=== PATIENT | female | born 1995 | race Caucasian/White ===

== ENCOUNTER → 2018-07-14 15:13 | Outpatient (CLI) | payer OTHER, SELFPAY | PROVIDERS: Family Provider Family Medicine; PCP Family Medicine; Visit Provider Registered Nurse | DX: Z53.9 Procedure and treatment not carried out, unspecified reason (principal) ==

== ENCOUNTER 2019-07-23 18:42 | Emergency (ER) | payer OTHER, SELFPAY ==
[2019-07-23 19:06] VITALS: BP 104/69; PULSE 82; RESP 16; TEMP 36.7; O2SAT 97; BMI 17.4
--- NOTE | 2019-07-23 19:09 | DI.RAD.S_ITS ---
PROCEDURE: XR ANKLE LT MIN 3V INDICATIONS: rolled L ankle TECHNIQUE: 3 views of the ankle were acquired. COMPARISON: None. FINDINGS: Bones: No fractures or dislocations. Ankle mortise is normally aligned. No suspicious bony lesions. Soft tissues: No tibiotalar joint effusion. Achilles tendon appears normal. IMPRESSION: No acute fracture. No osseous lesion. If clinical suspicion and/or symptoms persist, further assessment with repeat plainfilms, or advanced imaging (e.g., CT, MRI, or bone scan) may be helpful for further assessment. Dictated by: Soledad Mcintosh M.D. on 07/23/2019 at 19:21 Approved by: Soledad Mcintosh M.D. on 07/23/2019 at 19:21
--- NOTE | 2019-07-23 19:41 | ED.LOWEXIN ---
HPI - Extremity Injury (Lower) <SHERIF Briones - Last Filed: 07/23/19 21:39> General Chief Complaint: Extremity Injury, Lower Stated Complaint: fall, left ankle pain Time Seen by Provider: 07/23/19 18:57 Source: patient Mode of arrival: Wheelchair Limitations: no limitations History of Present Illness HPI Narrative: This is a pleasant 24-year-old female, nonsmoker, who presents with friend with chief complain of left lateral ankle/foot pain. She states rolled and inverted left foot after she stepped wrong on side walk and grass hedge and felt. Patient reports is able to move her toes, has intact sensation but difficulty with bearing weight due to pain. Patient denies previous injury to same foot or ankles. Patient denies any other injuries from this. Related Data Home Medications Medication Instructions Recorded Confirmed albuterol sulfate 90 mcg/actuation 2 puff INHALATION Q4-6H PRN 07/14/18 10/14/18 aerosol inhaler fluticasone propionate 44 2 inhalation INHALATION BID 06/12/19 mcg/actuation HFA aerosol inhaler Allergies Allergy/AdvReac Type Severity Reaction Status Date / Time No Known Drug Allergies Allergy Verified 10/14/18 14:25 Review of Systems <SHERIF Briones - Last Filed: 07/23/19 21:39> Review of Systems ROS Unobtainable: All systems reviewed & are unremarkable except as noted in HPI and below PFSH <SHERIF Briones - Last Filed: 07/23/19 21:39> Medical History Asthma (Resolved) Surgical History History of third molar tooth extraction (Resolved 2009) Family History (Updated 10/14/18 @ 10:55 by Guerline Freitas) Brother No problems noted. Father No problems noted. Mother No problems noted. Sister No problems noted. Grandmother Bipolar disorder Social History Smoking Status: Never smoker alcohol intake: current (occasionally) substance use type: does not use Family History Brother No problems noted. Father No problems noted. Mother No problems noted. Sister No problems noted. Grandmother Bipolar disorder Social History Smoking Status: Never smoker alcohol intake: current (occasionally) substance use type: does not use Exam <SHERIF Briones - Last Filed: 07/23/19 21:39> Narrative Exam Narrative: General appearance: well developed, well nourished, in no acute distress. Head: normocephalic, atraumatic, no scalp lesions, non-tender. Eye: pupil equal, round. EOMI. Nose: nares patent. Oral: mucosa moist. Neck/Thyroid: neck supple, full range of motion, no visible masses. Skin: no suspicious rashes, lesions over visible areas. Warm and dry. Heart: no clubbing, no cyanosis, no edema. Lungs: Breathing even and unlabored. No stridor. No accessory muscles used. Chest: normal shape and expansion. Abdomen: non-obese, non-distended. Neurologic: alert and oriented. Cognitive exam, DOLL WIG MAKER and PNS grossly intact on informal exam. Psych: good eye contact, normal affect. Initial Vital Signs Initial Vital Signs: Vital Signs Temperature 98.1 F 07/23/19 19:06 Pulse Rate 82 07/23/19 19:06 Respiratory Rate 16 07/23/19 19:06 Blood Pressure 104/69 07/23/19 19:06 Pulse Oximetry 97 07/23/19 19:06 Extrem Right upper extremity: normal to inspection and full ROM Left upper extremity: normal to inspection and full ROM Right lower extremity: normal to inspection and full ROM Left lower extremity: ankle Details: normal to inspection, tenderness Location: anterolaterally, no edema and abnormal ROM Details: pain with active ROM and pain with passive ROM and foot Details: normal capillary refill, normal to inspection, tenderness Location: of the lateral foot and of the mid foot, toes with normal ROM, no edema, vascular exam Details: dorsalis pedis pulse present, normal capillary refill and other, tendon exam (but painful) Details: active flexion normal and active extension normal and motor-sensory exam Details: light-touch normal; no abrasions, no lacerations, no ecchymosis and no crepitus <Thong Hayden DO - Last Filed: 07/23/19 23:50> Initial Vital Signs Initial Vital Signs: Vital Signs Temperature 98.1 F 07/23/19 19:06 Pulse Rate 82 07/23/19 19:06 Respiratory Rate 16 07/23/19 19:06 Blood Pressure 104/69 07/23/19 19:06 Pulse Oximetry 97 07/23/19 19:06 Procedures <SHERIF Briones - Last Filed: 07/23/19 21:39> Orthopedic Splinting/Casting Injury #1: Side: left Lower Extremity Injury Location: ankle Lower Extremity Immobilizer: Derek wrap Other Orthopedic Equipment: crutches Post splinting neuro exam: intact Post splinting vascular exam: intact Placed by: Nursing Scores <SHERIF Briones - Last Filed: 07/23/19 21:39> GCS [place] coma scale eye opening: Spontaneous [place] coma scale verbal response: Orientated [place] coma scale motor response: Obey commands [place] coma scale total score: 15 Course <SHERIF Briones - Last Filed: 07/23/19 21:39> Orders Ordered: ED Orders 07/23/19 19:09 XR ankle LT min 3V Stat Vital Signs Vital signs: Vital Signs - 8 hr 07/23/19 19:06 Temperature 98.1 F Pulse Rate 82 Respiratory Rate 16 Blood Pressure 104/69 Pulse Oximetry 97 <Thong Hayden DO - Last Filed: 07/23/19 23:50> Orders Ordered: ED Orders 07/23/19 19:09 XR ankle LT min 3V Stat Vital Signs Vital signs: Vital Signs - 8 hr 07/23/19 19:06 Temperature 98.1 F Pulse Rate 82 Respiratory Rate 16 Blood Pressure 104/69 Pulse Oximetry 97 MDM - Extremity Injury (Lower) <SHERIF Briones - Last Filed: 07/23/19 21:39> Differential Diagnosis Differential diagnosis: Likely ankle sprain and strain, ankle fracture and other (Foot sprain, foot fracture) Medical Records Attestation: I reviewed the patient's medical records. Imaging Data XR-Ankle LT: Radiologist's impression: [address] [address] XRay Report Signed Patient: Gabriela Brumfieldlyfilemon Garcia [facility]#: [id number] : 1995Acct:[id number] Age/Sex: 24 / FDate of Service: 07/23/19 Loc: ED Accession Number: [id number] Procedure: XR ankle LT min 3V Ordering Provider: Thong Hayden D.O. PROCEDURE: XR ANKLE LT MIN 3V INDICATIONS: rolled L ankle TECHNIQUE: 3 views of the ankle were acquired. COMPARISON: None. FINDINGS: Bones: No fractures or dislocations. Ankle mortise is normally aligned. No suspicious bony lesions. Soft tissues: No tibiotalar joint effusion. Achilles tendon appears normal. IMPRESSION: No acute fracture. No osseous lesion. If clinical suspicion and/or symptoms persist, further assessment with repeat plainfilms, or advanced imaging (e.g., CT, MRI, or bone scan) may be helpful for further assessment. Dictated by: Soledad Mcintosh M.D. on 07/23/2019 at 19:21 Approved by: Soledad Mcintosh M.D. on 07/23/2019 at 19:21 [facility] Narrative Medical decision making narrative: This is a 24-year-old female inverted her L foot this afternoon on a sidewalk and grass edge. Neurovascular exam is intact in left foot. Patient is able to move her toes without difficulty. Patient reports difficulty bearing weight due to pain. Left ankle x-ray shows no acute findings. Derek wrap was applied to left foot and provided a crutch for ambulation assistance. Patient advised RICE therapy and to take OTC Tylenol/Motrin as needed for pain and inflammation. Return precautions were discussed with the patient and advised to follow up with her primary care physician next week. The patient agrees with treatment plan and no further questions were expressed at this time. Work note has been provided. Discharge Plan Departure Patient Disposition: Home Clinical Impression: Ankle sprain Qualifiers: Encounter type: initial encounter Involved ligament of ankle: unspecified ligament Laterality: left Qualified Code(s): S93.402A - Sprain of unspecified ligament of left ankle, initial encounter Discharge Date/Time: 07/23/19 20:09 Instructions: DI for Ankle Sprain Activity Restrictions/Additional Instructions: You have been diagnosed with [ankle sprain. According to x-ray test today, as no acute findings such as fracture, dislocation. ]. What to do: *Take your medications as directed. You use [id number] Tylenol and or Motrin as needed for discomfort. Tylenol is for upto 4000 mg /24 hr period and Motrin 400mg-800 mg 3-4 times a day with food. Please use ?RICE? therapy such as Rest, Ice, Compression/Spliint/Acewra, and Elevation above the chest level. Ice the area for next 24-48 hrs after the initial injury. Please try to avoid getting swelling to the affected site since this may cause increasing pain. *Follow up with your primary care provider in 2-3 days, call for an appointment. Let them know you were seen in the ED and that we asked you to be seen in follow up. *Return to ED if you have any new, worsening, or concerning symptoms, such as [Please monitor for increasing pain, swelling, tingling/numbness, unable to move affected/below the injury site, cool limbs]. Prescriptions: No Action Flovent HFA 44 mcg/actuation HFA aerosol inhaler 2 inhalation INHALATION BID RF: 0 albuterol sulfate [ProAir HFA] 90 mcg/actuation HFA aerosol inhaler 2 puff INHALATION Q4-6H PRNRF: 0 Referrals: Elly Coffey MD [Primary Care Provider] - Stand Alone Forms: Work Release Note
== END 2019-07-23 20:09 | disposition home or self-care (01) ==
PROVIDERS: Emergency Provider Nurse Practitioner Family; Family Provider Family Medicine; PCP Family Medicine
DX: S93.402A Sprain of unspecified ligament of left ankle, initial encounter (principal); W01.0XXA Fall on same level from slipping, tripping and stumbling without subsequent striking against object, initial encounter
CPT/HCPCS: 73610; 99282; 99283

== ENCOUNTER 2020-06-26 09:13 | Outpatient (RCR) | payer OTHER, SELFPAY ==
--- NOTE | 2020-06-27 10:58 | ST.OPIE ---
Visit Care Team Role Provider Type Giuseppe Haley DO Primary Care Provider Physician Specialty: Family Practice Address: [address] [place] [address], [id number] Email: Elly Coffey MD Family Provider Physician Specialty: Family Practice Address: [address] [place] [address], [place], [address] Email: [email or web address] Matthew Conner MD Attending Provider Non-Staff Referring Provider Specialty: Allergy & Immunology Address: [address] [place] [address], [id number] Email: Speech-Language Pathology Initial Evaluation COMMUNITY MANAGER Voice Resonance Evaluation Start: 06/26/20 17:16 Freq: Status: Active Protocol: Document 06/26/20 17:16 LL (Rec: 06/26/20 17:45 LL [id number]) Voice and Resonance Assessment Session Time Visit Start Time 09:30 Visit Stop Time 10:30 Total Visit Minutes 60 Visit Information Visit Number 1 Plan of Care Dates 06/26/20-09/25/20 Insurance Information [place] Next Note Type Next Note Type Treatment Note Referral Referring Physician Dr. Matthew Conner Reason for Referral Vocal cord dysfunction (VCD) / Paradoxical vocal cord motion (PVCM) Setting Setting Outpatient Care Patient History General Information Per H&P: Caridad is a 25-year- old female with complaints of throat clearing, intermittent episodes of throat tightening, and sporadic changes in vocal quality specifically in the morning. Caridad has a history of asthma as well as throat hypersensitivity symptoms suggestive of vocal cord dysfunction (VCD), and laryngoesophageal reflux disease (LPRD). Caridad reported the following symptoms to Dr. Conner: throat acutely tightens up ( especially with class presentations), globus pharyngeus (feeling like there ?s a FB at the base of her throat), hears inspiratory noises on occasions, feeling like she is ?breathing thru a straw?, and difficulty speaking when throat tightens up. Caridad received a rhinolaryngoscopy on 01/04/2019 to determine presence of VCD. 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 Hectors vocal cords appeared normal, with notation of some mild focal areas of thickening or early nodule formation at the juncture of the posterior one third with the anterior two thirds of the true vocal cords. No vocal cord dysfunction was observed. It was noted that Hectors symptoms worsened when she was furloughed due to COVID-19, but symptoms have improved since she returned to work. She was referred by Dr. Conner to receive a full voice evaluation due to ongoing episodes of acute-onset throat tightness and concern about vocal cord dysfunction / paradoxical vocal cord motion the underlying cause of her symptoms. At the beginning of the session, COMMUNITY MANAGER obtained additional case history information from Caridad. Caridad reported that she was diagnosed with silent reflux and was prescribed omeprazole for a short period of time, but decided to stop taking the medication because she could not tell a difference in her symptoms. She also reported that she was diagnosed with post nasal drip but does not currently take any medication to manage symptoms. Caridad has a dx of asthma and uses a steroid inhaler to manage symptoms. Caridad self- reported signs and symptoms similar to anxiety /stress and attributes school and work to these symptoms. Hearing Hearing Level Normal Vision Vision Status Impaired Comments Wear glasses - vision WNL when wearing glasses [place] Lang[place] Language(s) Spoken in the Home Malay Educational Status Education Level College - currently obtaining her Master's Degree in School Counseling Occupational Status Occupation Status Nanny / College student Previous Therapy Previous Speech-Language Therapy No History of Previous Therapy No previous speech therapy. Caridad reported that she had a speech therapy evaluation scheduled last year after rhinolaryngoscopy, however canceled the appointment. Oral Motor Assessment Source: [place] [employer] ([employer]). Oral-Motor Eval Completed Yes Oral-Motor Assessment Normal oral cavity size and symmetrical structures WFL of strength, coordination, and ROM. Caridad has complete natural dentition in adequate condition. No weakness or deviations observed. Subjective Subjective Caridad arrived on time unaccompanied. She provided a detailed case history and was extremely pleasant to work with. - Laryngeal Performance S/Z Ratio S/Z Ratio 10.7 / 6.75 = 1.585 Functional for Speech Yes Reduced Laryngeal Function Relative to Yes Respiration Voice Handicap Index VHI Comments VHI-10 administered. Scores: 12.5% - mild impairment Maximum Phonation Time MPT Norms: Women (15-25) Men (25-35) Loudness (50-60 dB); Speaking Rate: Oral Reading of Sentences (190 Words Per Minute); Oral Reading of Paragraphs (160-170 WPM); Speaking Rate in Conversation (150-250 WPM) Maximum Phonation Time 11.47 seconds Maximum Phonation Time Reduced Muscle Tension Assessment Muscle Tension Assessment Jaw,Neck,Shoulders Tenderness with Palpation/Massage Yes,Bilateral Tongue Base Tension Tongue Base Tension w/ Voicing Yes: moderate Tongue Base Tension at Rest Yes: moderate Breath Support Breath Support At Rest Clavicular Breath Support Sustained Phonation Clavicular Breath Support Conversation Clavicular Postural Alignment Stance Balanced Shoulders Both High Resonance Other Observations Inadequate Breath Support, Throat Clearing Therapeutic Techniques Therapy Tactics Breath Support Other Tactics Diapgragmatic breathing and relaxation techniques to reduce laryngeal tension. Findings Findings Mild-Moderate Impairment Observations Findings were as follows: S/Z ratio: 1.585 (A ratio of 1 .4 or above may indicate a degree of vocal fold dysfunction). Maximum Phonation Time: 11.47 seconds (Average MPT for females range from 15 seconds ? 25 seconds) Mild-moderately reduced. Diadochokinetic Rate (DDK): Mild-moderately reduced CAPE-V: Initiated but incomplete. VHI-10: . Mild impairment. Caridad self-reported difficulty being understood by others in a noisy room and running out of air when speaking. Breath support: Clavicular breathing. Raised shoulders when speaking. Laryngeal and shoulder tension observed. Reduced breath support. *Ongoing assessment recommended to further assess Hectors voice, resonance, and respiratory function. Prognosis Rehabilitation Potential Excellent - Recommendations Treatment Recommended Yes Treatment Frequency/Duration 1 x per week for 1-2 months Therapy Recommendations Reviewed results with Caridda and recommended that she receive speech therapy to address above listed impairments to improve her vocal and respiratory function . Provided Caridad with a diaphragmatic breathing handout and vocal hygiene tips handout to begin utilizing at home. COMMUNITY MANAGER demonstrated correct use of diaphragmatic breathing to increase Hector s understanding and compliance with home exercise program. Informed Caridad that ongoing assessments are recommended to further guide plan of care. She verbalized understanding and agreement with plan. Short Term Goals 1. Caridad will participate in an ongoing assessment of her voice and respiratory function to measure progress and further guide plan of care. 2. Caridad will demonstrate an understanding of voice production physiology and controlled voice utilization by describing/listing the phonation process and alternatives or modifications of current use in different environmental contexts with 90 % accuracy within 4 weeks. 3. Caridad will eliminate vocal misuse to improve health of vocal folds by reducing or eliminating laryngeal tension and trauma to vocal tissues within 4 weeks as evidenced by patient report and COMMUNITY MANAGER observations with 100% accuracy. 4. Caridad will increase her maximum phonation time (MPT) from 11.47 seconds to 15-25 seconds to improve respiratory and vocal function. 5. Caridad will establish volitional control of respiration evidenced by utilization of diaphragmatic breathing during structured tasks within 4 weeks with 100% accuracy independently. Advertising Sales Executive Goals 1. Caridad will implement generalization of goals with 80% accuracy independently to encourage the use of new vocal skills in varied speaking contexts. * Goals may be modified pending additional assessment results. Patient/Caregiver Education Patient/Family Education Described results of evaluation,Patient Understanding,Patient Needs More Info Vocally Abusive Behavior Behavior Rating Caffeine Use Occasionally Coughing/Sneezing Loudly Frequent throat clearing Environmental Irritant Exposure Frequently Use of Inhalants Inhaler for asthma
--- NOTE | 2020-11-26 13:23 | ST.OPDS ---
Patient seen for evaluation on 06-26-20 and has not scheduled follow-up appointment since then. Discharge due to lapse in treatment.
== END 2020-12-02 15:10 ==
LOC: SP 09:13
PROVIDERS: Family Provider Family Medicine; PCP Family Medicine; Referring Provider Internal Medicine; Visit Provider Internal Medicine
DX: J38.3 Other diseases of vocal cords (principal)
CPT/HCPCS: 92524

== ENCOUNTER → 2023-10-09 11:56 | Outpatient (CLI) | payer OTHER, SELFPAY | PROVIDERS: Family Provider Family Medicine; PCP Family Medicine; Referring Provider Family Medicine; Visit Provider Family Medicine | DX: N97.9 Female infertility, unspecified (principal); Z78.9 Other specified health status | CPT/HCPCS: 36415; 84144 ==

== ENCOUNTER → 2024-01-04 08:03 | Outpatient (CLI) | payer OTHER, SELFPAY ==
[2024-01-04 09:48] LABS: HCG Quantitative /Beta subunit < 2.4 mIU/mL
== END ==
PROVIDERS: Family Provider Family Medicine; PCP Family Medicine; Referring Provider Family Medicine; Visit Provider Family Medicine
DX: N92.6 Irregular menstruation, unspecified (principal)
CPT/HCPCS: 36415; 84702

== ENCOUNTER → 2024-02-05 12:02 | Outpatient (CLI) | payer OTHER, SELFPAY ==
[2024-02-05 14:09] LABS: TSH w/ Reflex to FT4 0.62 uIU/mL (0.47-4.68)
[2024-02-05 15:29] LABS: Estradiol, Total 37.7 pg/mL
[2024-02-11 10:17] LABS: Anti Mullerian Hormone 7.83 ng/mL (.)
== END ==
LOC: LAB 12:03
PROVIDERS: Family Provider Family Medicine; PCP Family Medicine; Referring Provider Family Medicine; Visit Provider Family Medicine
DX: N97.9 Female infertility, unspecified (principal)
CPT/HCPCS: 36415; 82397; 82670; 83001; 84443

== ENCOUNTER → 2024-03-16 15:11 | Outpatient (CLI) | payer OTHER, SELFPAY ==
--- NOTE | 2024-03-16 15:30 | DI.US.S_ITS ---
PROCEDURE: US PELVIC COMPLETE INDICATIONS: Evaluate uterine anatomy TECHNIQUE: Real-time scanning was performed of the pelvic organs, with image documentation. Additional endovaginal scanning was necessary due to incomplete visualization of the adnexal and endometrial structures by transabdominal scanning. COMPARISON: None. FINDINGS: Uterus: Uterus is anteverted and normal in size at 7.1 x 2.8 x 3.5 cm. The myometrium is homogeneous. The endometrium measures 5 mm combined thickness. Ovaries: The right ovary measures 3.8 x 2.2 x 2.9 cm, with a calculated ovarian volume of 12.6 cc. The left ovary measures 2.5 x 1.8 x 1.6 cm, with a calculated ovarian volume of 3.7 cc. Simple cystic focus is present within the right ovary measuring 1.7 cm. Other: No pathologic free abdominal or pelvic fluid. IMPRESSION: Simple right ovarian cyst. Uterine anatomy appears within normal limits. We strive to produce accurate, complete, and clear reports of imaging services. To assist us in improving patient care, this report was composed using standard report templates and voice recognition software. Therefore, it may contain abnormal punctuation, insertions and/or omissions. Occasional wrong-word or sound-alike substitutions may occur. Though we review the report and make efforts to correct it, we do recommend that the report be read carefully in proper context to recognize any text inaccuracies. Dictated by: Kitty Naranjo M.D. on 03/16/2024 at 17:27 Approved by: Kitty Naranjo M.D. on 03/16/2024 at 17:28
== END ==
LOC: US 15:12
PROVIDERS: Family Provider Family Medicine; PCP Family Medicine; Referring Provider Student in an Organized Health Care Education/Training Program; Visit Provider Student in an Organized Health Care Education/Training Program
DX: N97.9 Female infertility, unspecified (principal); N83.291 Other ovarian cyst, right side
CPT/HCPCS: 76856

== ENCOUNTER → 2024-09-25 08:02 | Outpatient (CLI) | payer OTHER, SELFPAY ==
[2024-09-25 09:22] LABS: Hemoglobin A1C% w Est Avg Glu 5.1 % (4.0-6.0)
[2024-09-25 09:27] LABS: Add Manual Diff / Slide Review NO; Basophils Absolute Auto 0 /uL (0-100); Basophils Percent Auto 0.8 % (0-2); Eosinophils Absolute Auto 100 /uL (0-450); Eosinophils Percent Auto 2.7 % (2-4); HEMOLYSIS < 15 (0-50); Hemoglobin 14.5 g/dL (12.0-16.0); Iron 150 ug/dL (37-170); Lymphocytes Absolute Auto 1900 /uL (1100-4500); Lymphocytes Percent Auto 44.4 % (25-40); Mean Corpuscular HGB Conc 33.8 % (30-36); Mean Corpuscular Hemoglobin 31.7 PG (26-34); Mean Corpuscular Volume 93.7 fL (80-100); Monocytes Absolute Auto 200 /uL (0-900); Monocytes Percent Auto 5.4 % (3-14); Neutrophils Absolute Auto 2000 /uL (1500-7000); Neutrophils Percent Auto 46.7 % (50-75); Platelet Count 300 X10^3/uL (150-400); Red Blood Cell Count 4.59 X10^6/uL (4.0-5.2); Red Cell Distribution Width 12.9 % (11.6-14.8); White Blood Cell Count 4.3 X10^3/uL (4.5-11.0)
[2024-09-25 09:29] LABS: Alanine Aminotransferase 17 IU/L (<35); Albumin 4.6 g/dL (3.5-5.0); Albumin Globulin Ratio 1.6 (1.0-2.8); Alkaline Phosphatase 52 U/L (38-126); Aspartate Aminotransferase 22 IU/L (14-36); BUN Creatinine Ratio 12.2 (6-22); Bilirubin Total 0.7 mg/dL (0.2-1.3); Blood Urea Nitrogen 10 mg/dL (7-17); Calcium 9.9 mg/dL (8.4-10.2); Carbon Dioxide 28 mmol/L (22-32); Chloride 105 mmol/L (98-107); Cholesterol 194 mg/dL (140-199); Estimated Glomerular Filt Rate > 60 mL/min (>60); Globulin 2.9 g/dL (1.7-4.1); Glucose 103 mg/dL (70-100); HDL Cholesterol 93 mg/dL (40-60); HEMOLYSIS < 15 (0-50); LDL Cholesterol Calculated 90 mg/dL (<100); Potassium 4.2 mmol/L (3.4-5.1); Sodium 138 mmol/L (137-145); Total Protein 7.5 g/dL (6.3-8.2); Triglycerides 56 mg/dL (35-150)
[2024-09-25 09:34] LABS: High Sensitivity CRP - Cardiac 2.9 mg/L (1.0-3.0)
[2024-09-25 09:39] LABS: Percent Iron Saturation 71 % (15-50); Total Iron Binding Capacity 212 ug/dL (265-497); Transferrin 196 mg/dL (206-381)
[2024-09-25 09:45] LABS: Vitamin D 25 Hydroxy (D3) 23.6 ng/mL (30.0-100.0)
[2024-09-25 09:46] LABS: Free T4, Direct Thyroxine 1.06 ng/dL (0.78-2.19)
[2024-09-25 09:59] LABS: Thyroid Stimulating Hormone 0.626 uIU/mL (0.47-4.68)
[2024-09-25 10:05] LABS: Ferritin 51 ng/mL (6-137)
[2024-09-25 10:18] LABS: Vitamin B12 542 pg/mL (239-931)
[2024-09-26 07:41] LABS: Homocysteine 7.7 umol/L (0.0-14.5)
[2024-09-26 08:12] LABS: Insulin Level Total 3.9 uIU/mL (2.6-24.9)
[2024-09-26 15:36] LABS: Anti Thyroglobulin Antibody <1.0 IU/mL (0.0-0.9); Thyroid Peroxidase Antibodies <9 IU/mL (0-34)
[2024-09-27 17:09] LABS: Thyroid Stimulating Immunoglob < 0.10 IU/L (0.00-0.55)
[2024-09-29 12:39] LABS: Hemoglobin Free 0.7 mg/dL (0.0-4.9)
== END ==
PROVIDERS: Family Provider Family Medicine; PCP Family Medicine; Referring Provider Naturopath; Visit Provider Naturopath
DX: N94.3 Premenstrual tension syndrome (principal); N94.89 Other specified conditions associated with female genital organs and menstrual cycle; R55 Syncope and collapse; E63.9 Nutritional deficiency, unspecified; N97.9 Female infertility, unspecified; R68.89 Other general symptoms and signs
CPT/HCPCS: 36415; 80053; 80061; 81291; 82166; 82306; 82607; 82627; 82670; 82728; 83001; 83002; 83036; 83051; 83090; 83498; 83525; 83540; 83550; 84146; 84270; 84402; 84403; 84439; 84443; 84445; 84481; 85025; 86140; 86376; 86800

== ENCOUNTER → 2024-11-03 13:33 | Outpatient (CLI) | payer OTHER, SELFPAY ==
--- NOTE | 2024-11-03 13:34 | DI.MRI.S_ITS ---
PROCEDURE: MR PELVIS WO/W CON INDICATIONS: PERSISTENT SEVERE DYSMENORRHEA TECHNIQUE: Coronal HASTE, sagittal breath-hold T2 FSE; axial T1 FSE with and without fat saturation through the pelvis. Optional long- and short-axis uterine nonbreath-hold T2 FSE through the uterus. Sagittal or axial dynamic VIBE during administration of contrast. Post-contrast axial or coronal VIBE/2-D FLASH with fat saturation from the iliac crests to the symphysis. Optional diffusion weighted imaging and ADC may be performed. COMPARISON: None. FINDINGS: Image quality: Excellent. Uterus: Uterus is normal in size. Endometrium is normal in thickness. Junctional zone is normal in thickness at 12 mm or less. Adnexa: Both ovaries measure greater than 10 mL, without suspicious cystic or solid lesions. Greater than 12 follicles per ovary. Urinary system: Bladder wall is normal in thickness. Distal ureters are non distended. Urethra appears normal in morphology. Nodes and vessels: No pelvic or inguinal adenopathy by size criteria. Iliac vessels are normal in size. Bowel and peritoneum: No pathologic free pelvic fluid. Inferior colon and small bowel loops are normal in caliber. Soft tissues: No inguinal hernias. No findings of pelvic floor incompetence in the absence of provocation. Bones: Marrow demonstrates normal overall signal. IMPRESSION: No evidence of endometriosis. Greater than 12 follicles per ovary, which can be seen in the clinical setting of PCOS. Dictated by: Reji Chin M.D. on 11/05/2024 at 8:40 Approved by: Reji Chin M.D. on 11/05/2024 at 8:42
== END ==
PROVIDERS: Family Provider Family Medicine; PCP Family Medicine; Referring Provider Naturopath; Visit Provider Naturopath
DX: N94.6 Dysmenorrhea, unspecified (principal); N80.9 Endometriosis, unspecified
CPT/HCPCS: 72197; A9579

== ENCOUNTER → 2024-11-22 16:22 | Outpatient (CLI) | payer OTHER, SELFPAY ==
[2024-11-22 19:07] LABS: HCG Quantitative /Beta subunit 704.08 mIU/mL
== END ==
PROVIDERS: Family Provider Family Medicine; PCP Family Medicine; Referring Provider Family Medicine; Visit Provider Family Medicine
DX: Z34.90 Encounter for supervision of normal pregnancy, unspecified, unspecified trimester (principal); N97.9 Female infertility, unspecified
CPT/HCPCS: 36415; 84702

== ENCOUNTER → 2024-11-24 16:08 | Outpatient (CLI) | payer OTHER, SELFPAY ==
[2024-11-24 18:46] LABS: HCG Quantitative /Beta subunit 1816.3 mIU/mL
== END ==
PROVIDERS: Family Provider Family Medicine; PCP Family Medicine; Referring Provider Family Medicine; Visit Provider Family Medicine
DX: Z34.90 Encounter for supervision of normal pregnancy, unspecified, unspecified trimester (principal); N97.9 Female infertility, unspecified
CPT/HCPCS: 36415; 84702

== ENCOUNTER → 2024-12-18 12:29 | Outpatient (CLI) | payer OTHER, SELFPAY ==
[2024-12-18 13:18] LABS: Add Manual Diff / Slide Review NO; Basophils Absolute Auto 0 /uL (0-100); Basophils Percent Auto 0.5 % (0-2); Eosinophils Absolute Auto 100 /uL (0-450); Eosinophils Percent Auto 1.2 % (2-4); Hematocrit 36.2 % (36-46); Hemoglobin 12.5 g/dL (12.0-16.0); Lymphocytes Absolute Auto 1600 /uL (1100-4500); Lymphocytes Percent Auto 23.4 % (25-40); Mean Corpuscular HGB Conc 34.5 % (30-36); Mean Corpuscular Hemoglobin 31.8 PG (26-34); Mean Corpuscular Volume 92.2 fL (80-100); Monocytes Absolute Auto 300 /uL (0-900); Monocytes Percent Auto 4.8 % (3-14); Neutrophils Absolute Auto 4800 /uL (1500-7000); Neutrophils Percent Auto 70.1 % (50-75); Platelet Count 256 X10^3/uL (150-400); Red Blood Cell Count 3.93 X10^6/uL (4.0-5.2); Red Cell Distribution Width 13.1 % (11.6-14.8); White Blood Cell Count 6.9 X10^3/uL (4.5-11.0)
[2024-12-18 15:51] LABS: Hepatitis B Surface Antigen NEGATIVE s/c (NEGATIVE); Rubella Antibody IgG 44.8 IU/mL (>15)
[2024-12-18 16:08] LABS: HIV 1 & 2 Ab/Ag 4th Gen Combo NEGATIVE (NEGATIVE); Hep C Virus Ab w/Reflex Quant NEGATIVE s/c (NEGATIVE)
[2024-12-18 17:27] LABS: Hemoglobin A1C% w Est Avg Glu 4.8 % (4.0-6.0)
[2024-12-20 04:08] LABS: RPR Screen Non Reactive (Non Reactive)
== END ==
LOC: LAB 12:30
PROVIDERS: PCP Family Medicine; Referring Provider Family Medicine; Visit Provider Family Medicine
DX: Z34.00 Encounter for supervision of normal first pregnancy, unspecified trimester (principal); E28.2 Polycystic ovarian syndrome
CPT/HCPCS: 36415; 80055; 83036; 86787; 86803; 86850; 86900; 86901; 87389

== ENCOUNTER → 2025-01-04 16:07 | Outpatient (CLI) | payer OTHER, SELFPAY ==
[2025-01-04 16:40] LABS: Appearance Urine UA CLEAR; Bilirubin Urine UA NEGATIVE (NEGATIVE); Color Urine UA YELLOW; Glucose Urine UA NEGATIVE (Negative); Ketones Urine UA NEGATIVE (NEGATIVE); Leukocyte Esterase Urine UA NEGATIVE (NEGATIVE); Nitrite Urine UA NEGATIVE (Negative); Occult Blood Urine UA NEGATIVE (Negative); Protein Urine UA NEGATIVE (Negative); Specific Gravity Urine UA 1.025 (1.000-1.035); Urobilinogen Urine UA 0.2 E.U./dL (0.2)
== END ==
LOC: LAB 16:08
PROVIDERS: PCP Family Medicine; Referring Provider Family Medicine; Visit Provider Family Medicine
DX: Z34.00 Encounter for supervision of normal first pregnancy, unspecified trimester (principal)
CPT/HCPCS: 81003

== ENCOUNTER → 2025-02-27 07:50 | Outpatient (CLI) | payer OTHER, SELFPAY ==
--- NOTE | 2025-02-27 07:51 | DI.US.S_ITS ---
PROCEDURE: US OB >= 14 WEEKS FETUS INDICATIONS: growth OUTSIDE/PRIOR DATING DATA: Last menstrual period (LMP): 10/20/2024. LMP-based estimated date of delivery (IVONNE): 07/27/2025. First dating scan (date and location): 12/18/2024. Estimated date of delivery (IVONNE) from first dating scan: 07/29/2025. The calculations are made using the clinical IVONNE of 07/27/2025. TECHNIQUE: Real-time scanning was performed of the fetus, with image documentation and biometric measurements. Endovaginal scanning: Not performed COMPARISON: None. FINDINGS: General: A single living intrauterine gestation is present. Presentation: Breech. Placenta: Placental position is anterior , without previa. Amniotic fluid index: 16.9 cm, normal range is 5-24 cm. Single deepest vertical pocket is 5.4 cm. heart rate: 147 beats per minute. Maternal cervical canal: 4.3 cm long. Normal lower limit is 2.5 cm. biometrics: Biparietal diameter: 4.4 cm, 19 weeks 2 days Head circumference: 15.5 cm, 18 weeks 3 days Abdominal circumference: 13.3 cm, 18 weeks 6 days Femur length: 2.6 cm, 17 weeks 6 days Clinically estimated gestational age: 18 weeks 4 days Composite gestational age from present scan: 18 weeks 4 days Estimated weight and percentile: 238 g, 35th percentile Anatomic survey: Neuro: Possible bilateral choroid plexus cysts. Ventricles are non-dilated at less than 10 mm. Cisterna magna is normal at 3-11 mm. Cerebellum is normal in size and morphology. Nuchal skin fold: Normal at less than 6 mm between 14-21 weeks gestational age. Face: Nose and lips, facial profile are normal. Spine: No evidence for spina bifida. Heart: 4-chambered heart is present, with normal ventricular outflow tracts. Diaphragm: Diaphragm is intact. Stomach: Left-sided stomach is present. Kidneys: No hydronephrosis. Normal is less than 5 mm in 2nd trimester, less than 7 mm in 3rd trimester. Cord: 3-vessel cord has orthotopic insertion. Bladder: Normal in size. Extremities: All 4 extremities identified. IMPRESSION: 1. Single live intrauterine consistent with 18 weeks and 4 days. 2. Possible bilateral choroid plexus cysts, recommend follow-up ultrasound. 3. Otherwise, normal anatomic survey. We strive to produce accurate, complete, and clear reports of imaging services. To assist us in improving patient care, this report was composed using standard report templates and voice recognition software. Therefore, it may contain abnormal punctuation, insertions and/or omissions. Occasional wrong-word or sound-alike substitutions may occur. Though we review the report and make efforts to correct it, we do recommend that the report be read carefully in proper context to recognize any text inaccuracies. Dictated by: Xavier Liu M.D. on 02/27/2025 at 10:28 Approved by: Xavier Liu M.D. on 02/27/2025 at 10:31
== END ==
LOC: US 07:50
PROVIDERS: PCP Family Medicine; Referring Provider Family Medicine; Visit Provider Family Medicine
DX: Z34.02 Encounter for supervision of normal first pregnancy, second trimester (principal); Z3A.18 18 weeks gestation of pregnancy
CPT/HCPCS: 76811

== ENCOUNTER → 2025-03-20 14:18 | Outpatient (CLI) | payer OTHER, SELFPAY ==
--- NOTE | 2025-03-20 14:19 | DI.US.S_ITS ---
PROCEDURE: US OB FOLLOW UP INDICATIONS: bilateral choroid plexus cysts OUTSIDE/PRIOR DATING DATA: The calculations are made using the IVONNE of 07/27/2025. TECHNIQUE: Real-time scanning was performed of the fetus, with image documentation. Endovaginal scanning: Not performed COMPARISON: [facility], , OB >= 14 WEEKS FETUS, 02/27/2025, 8:02. FINDINGS: A single living intrauterine gestation is present. Presentation: Vertex. Placenta: Placental position is anterior, without previa. Amniotic fluid index: 18.4 cm, normal range is 5-24 cm. Single deepest vertical pocket is 0.3 cm. heart rate: 155 beats per minute. Maternal cervical canal: 4.4 cm long. Normal lower limit is 2.5 cm. Clinically estimated gestational age: 21 weeks, 4 days The right choroid plexus appears within normal limits. Probable left choroid plexus complex cysts, medial posteriorly measuring 1.2 x 0.6 x 0.4 cm and lateral/mid measuring 1.3 x 0.5 x 0.3 cm. IMPRESSION: 1. Single live intrauterine consistent with 21 weeks and 4 days. 2. Probable left choroid plexus cysts as described above. As clinically indicated, follow-up ultrasound or genetic screening can be obtained. Dictated by: Xavier Liu M.D. on 03/21/2025 at 10:42 Approved by: Xavier Liu M.D. on 03/21/2025 at 10:48
== END ==
PROVIDERS: PCP Family Medicine; Referring Provider Family Medicine; Visit Provider Family Medicine
DX: G93.0 Cerebral cysts (principal); Z3A.21 21 weeks gestation of pregnancy
CPT/HCPCS: 76816

== ENCOUNTER → 2025-05-02 09:11 | Outpatient (CLI) | payer OTHER, SELFPAY ==
[2025-05-02 10:09] LABS: Add Manual Diff / Slide Review NO; Hematocrit 36.0 % (36-46); Hemoglobin 12.6 g/dL (12.0-16.0); Lymphocytes Absolute Auto 1300 /uL (1100-4500); Mean Corpuscular HGB Conc 35.0 % (30-36); Mean Corpuscular Hemoglobin 33.1 PG (26-34); Mean Corpuscular Volume 94.7 fL (80-100); Platelet Count 256 X10^3/uL (150-400)
[2025-05-02 12:02] LABS: GTT (PREG) 1 Hour PP 50gm Dose 85 mg/dL (76-139)
== END ==
PROVIDERS: PCP Family Medicine; Referring Provider Family Medicine; Visit Provider Family Medicine
DX: Z34.00 Encounter for supervision of normal first pregnancy, unspecified trimester (principal)
CPT/HCPCS: 36415; 82950; 85025; 86850

== ENCOUNTER → 2025-07-02 15:35 | Outpatient (CLI) | payer OTHER, SELFPAY ==
[2025-07-03 14:28] LABS: Strep Grp B PCR NEG for Grp B Strep
== END ==
PROVIDERS: PCP Family Medicine; Visit Provider Family Medicine
DX: Z34.00 Encounter for supervision of normal first pregnancy, unspecified trimester (principal)
CPT/HCPCS: 87653

== ENCOUNTER → 2025-07-03 15:37 | Outpatient (CLI) | payer OTHER, SELFPAY ==
--- NOTE | 2025-07-03 15:37 | DI.US.S_ITS ---
PROCEDURE: US OB FOLLOW UP INDICATIONS: GROWTH OUTSIDE/PRIOR DATING DATA: Last menstrual period (LMP): 10/20/2024. LMP-based estimated date of delivery (IVONNE): 07/27/2025. First dating scan (date and location): 12/18/2024. Estimated date of delivery (IVONNE) from first dating scan: 07/29/2025. The calculations are made using the clinical IVONNE of 07/27/2025. TECHNIQUE: Real-time scanning was performed of the fetus, with image documentation. Endovaginal scanning: Not performed COMPARISON: [facility], OB >= 14 WEEKS FETUS, 02/27/2025, 8:02. [facility], OB FOLLOW UP, 03/20/2025, 14:33. FINDINGS: A single living intrauterine gestation is present. Presentation: Vertex. Placenta: Placental position is anterior, without previa. Amniotic fluid index: 12.9 cm, normal range is 5-24 cm. Single deepest vertical pocket is 5.2 cm. heart rate: 136 beats per minute. Maternal cervical canal: Not well seen. Biometric measurements: BPD: 9.5 cm, 38 weeks 4 days. 96 percentile. HC: 33.0 cm, 37 weeks 4 days. 46 percentile. AC: 32.4 cm, 36 weeks 2 days. 56 percentile. FL: 6.7 cm, 34 weeks 2 days. 4 percentile. Clinically estimated gestational age: 36 weeks 4 days Estimated gestational age from initial scan: 36 weeks 5 days. Estimated weight: 2867 g, 43rd percentile. IMPRESSION: 1. Andrew living intrauterine at 36 weeks 5 days based on today's ultrasound. Fetus is in the 43rd percentile for weight overall. However, the BPD is in the 96th percentile and the femur length is in the 4th percentile. 2. Normal amniotic fluid. Placenta is felt to be within normal limits. Dictated by: Wade Pearce M.D. on 07/03/2025 at 17:15 Approved by: Wade Pearce M.D. on 07/03/2025 at 17:35
== END ==
LOC: US 15:37
PROVIDERS: PCP Family Medicine; Referring Provider Family Medicine; Visit Provider Family Medicine
DX: Z34.03 Encounter for supervision of normal first pregnancy, third trimester (principal); Z3A.36 36 weeks gestation of pregnancy
CPT/HCPCS: 76816

== ENCOUNTER 2025-07-04 13:08 | Outpatient (CLI) | payer OTHER, SELFPAY ==
--- NOTE | 2025-07-04 13:20 | DI.US.S_ITS ---
PROCEDURE: US OB LIMITED INDICATIONS: REPEAT MEASUREMENTS + HUMERUS OUTSIDE/PRIOR DATING DATA: Last menstrual period (LMP): 10/20/2024. LMP-based estimated date of delivery (IVONNE): 07/27/2025. First dating scan (date and location): 12/18/2024. Estimated date of delivery (IVONNE) from first dating scan: 07/29/2025. The calculations are made using the working IVONNE of 07/27/2025. TECHNIQUE: Real-time scanning was performed of the fetus, with image documentation and biometric measurements. Endovaginal scanning: Not performed COMPARISON: [facility], , OB FOLLOW UP, 07/03/2025, 15:56. FINDINGS: General: A single living intrauterine gestation is present. Presentation: Vertex. Placenta: Placental position is anterior , without previa. Amniotic fluid index: Not calculated today. It was normal yesterday, measuring 12.9 cm. heart rate: 162 beats per minute. Maternal cervical canal: Not well seen at late stage of . biometrics: Biparietal diameter: 9.2 cm, 37 weeks 3 days Head circumference: 39.2 cm, 37 weeks 2 days Abdominal circumference: 31.3 cm, 35 weeks 1 day Femur length: 6.8 cm, 34 weeks 5 days, 7 percentile Humerus length: 6.2 cm, 35 weeks 5 days, 64 percentile Clinically estimated gestational age: 36 weeks 5 days Composite gestational age from present scan: 36 weeks 0 days Estimated weight and percentile: 2698 g, 24th percentile Umbilical artery S/D: 2.6, 2.9, 2.3 Other: There is no marginal insertion of the cord on the placenta. IMPRESSION: 1. Living late 3rd trimester intrauterine with no sonographic evidence of complications. 2. Short femur. Normal sized humerus. 3. Normal umbilical artery Dopplers. We strive to produce accurate, complete, and clear reports of imaging services. To assist us in improving patient care, this report was composed using standard report templates and voice recognition software. Therefore, it may contain abnormal punctuation, insertions and/or omissions. Occasional wrong-word or sound-alike substitutions may occur. Though we review the report and make efforts to correct it, we do recommend that the report be read carefully in proper context to recognize any text inaccuracies. Dictated by: Gianni Soni M.D. on 07/04/2025 at 14:54 Approved by: Gianni Soni M.D. on 07/04/2025 at 15:00
--- NOTE | 2025-07-04 13:47 | P.TNLD_ITS ---
Visit Information Visit Information Date of evaluation: 07/04/25 Primary OB Provider: Elly Coffey Comments/Additional reasons for admission: 30yo at 36w5d here for NST for shortened femur and enlarged BPD seen on growth u/s yesterday. Pt is feeling her baby move regularly. [facility] Medical History PCOS (polycystic ovarian syndrome) Heterozygous for MTHFR gene mutation GERD with esophagitis Female infertility Plantar wart of right foot Surgical History History of third molar tooth extraction (2009) Family History Brother No problems noted. Father Asthma GERD (gastroesophageal reflux disease) Melanoma Mother No problems noted. Sister No problems noted. 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 current occupational exposures/hazards: No special marsha needs: No travel history: over 6 months ago seatbelt use: always helmet use: Yes water heater temp set < 120 deg: Yes working smoke detector in home: Yes fire extinguisher in home: Yes carbon monox detector in home: Yes firearms in home: Yes firearms unloaded and locked: Yes do you feel safe at home: Yes second hand exposure: No alcohol intake: never substance use type: does not use during the past year weight has: remained stable well-balanced diet: daily or most days daily servings fruits/ve or more times/day caffeine: Yes (occasional black tea) Type(s) of exercise: walking frequency: 3-4 times per week Evaluation Evaluation Baseline heart rate: 140 Variability: Moderate (6-25) monitor accelerations: Present Monitor Decelerations: Absent Category of Tracing: Reactive Diagnosis, Plan/Disposition Final Diagnosis (1) Short femur of fetus on ultrasound: Status: Acute Plan/Disposition Plan: 30yo at 36w5d here for NST for shortened femur and enlarged BPD seen on growth u/s yesterday. NST reactive. Repeat growth scan today showing appropriate length of humerus. Femur at the 7th percentile, BPD appropriate percentile. Normal u/a dopplers. Pt with negative cfDNA earlier in . No need for additional testing at this time. OB Disposition: home
== END 2025-07-04 14:43 | disposition home or self-care (01) ==
LOC: LABOR 13:33 → OB 07-06 10:39
PROVIDERS: PCP Family Medicine; Referring Provider Family Medicine; Visit Provider Family Medicine
DX: O35.HXX0 Maternal care for other (suspected) fetal abnormality and damage, fetal lower extremities anomalies, not applicable or unspecified (principal); O35.8XX0 Maternal care for other (suspected) fetal abnormality and damage, not applicable or unspecified; Z3A.36 36 weeks gestation of pregnancy
CPT/HCPCS: 59025; 76815; 76820; G0378; G0379

== ENCOUNTER 2025-07-20 18:07 | Outpatient (CLI) | payer OTHER, SELFPAY | END 2025-07-20 18:59 | disposition home or self-care (01) | LOC: OB 07-23 10:59 | PROVIDERS: PCP Family Medicine; Referring Provider Family Medicine; Visit Provider Family Medicine | DX: O36.8130 Decreased fetal movements, third trimester, not applicable or unspecified (principal); Z3A.39 39 weeks gestation of pregnancy | CPT/HCPCS: 59025; G0378; G0379 ==

== ENCOUNTER 2025-07-25 02:35 | Observation (INO) | payer OTHER, SELFPAY | END 2025-07-25 05:20 | disposition home or self-care (01) | PROVIDERS: Admitting Provider Obstetrics & Gynecology; PCP Family Medicine; Referring Provider Obstetrics & Gynecology; Visit Provider Obstetrics & Gynecology | DX: O47.1 False labor at or after 37 completed weeks of gestation (principal); Z3A.39 39 weeks gestation of pregnancy | CPT/HCPCS: 59025; G0378; G0379 ==

== ENCOUNTER 2025-07-25 11:22 | Inpatient (IN) | payer OTHER, SELFPAY ==
[2025-07-25 12:53] LABS: Add Manual Diff / Slide Review NO; Hematocrit 40.4 % (36-46); Hemoglobin 13.7 g/dL (12.0-16.0); Lymphocytes Absolute Auto 1300 /uL (1100-4500); Mean Corpuscular HGB Conc 33.9 % (30-36); Mean Corpuscular Hemoglobin 31.7 PG (26-34); Mean Corpuscular Volume 93.4 fL (80-100); Platelet Count 257 X10^3/uL (150-400)
[2025-07-25 13:41] VITALS: BP 120/67
--- NOTE | 2025-07-25 13:52 | PM.OBHP.IH.1 ---
OB HPI Date/Time Date of admission: 07/25/25 Date Patient Seen: 07/25/25 History of Present Condition Chief complaint: nst IVONNE Calculator Estimated Delivery Date Method Current WG Current Estimate 07/27/25 LMP (Certain) 39w 5d Other Estimates 07/29/25 Ultrasound #1 39w 3d Estimated Gestational Age (weeks): 39w5d Narrative: Pt is a 30yo at 39w5d who presented with painful contractions. Pt reports contractions increasing in intensity and frequency around 10am. No vaginal bleeding or LOF. She is feeling her baby move regularly. The pts was complicated by asthma, well controlled on Flovent. Also noted to have small femurs on f/u u/s at the 7th percentile without any additional growth anomalies. care: good care, initiated at week # (8) and pounds weight gain (24) Dating criteria OB: LMP confirmed by 1st trimester US Ultrasounds: normal 1st trimester US and normal mid trimester US Abnormal ultrasound findings: 7th percentile femur length Obstetrical complications: none Medical complications OB: none Preadmission Labs Last OB Lab Results: Blood Type A Positive Today, 12:10 Antibody Screen Negative Today, 12:10 Hct, (36-46) 40.4 % Today, 12:10 Hgb, (12.0-16.0) 13.7 g/dL Today, 12:10 Hep Bs Antigen, (NEGATIVE) Negative s/c 12/18/24, 13:00 Hepatitis C Antibody, (NEGATIVE) Negative s/c 12/18/24, 13:00 Rubella Antibody, (>15) 44.8 IU/mL 12/18/24, 13:00 VZV IgG Antibody, (Non Reactive) Reactive 12/18/24, 13:00 Glucose 1 Hr 50 gm, (76-139) 85 mg/dL 05/02/25, 10:53 Hemoglobin A1c, (4.0-6.0) 4.8 % 12/18/24, 13:00 Group B Strep (PCR) Neg for grp b strep 07/02/25, 15:28 -: Urine: negative Genetic Screens: Cell-free DNA: Normal External Labs -: Urine: negative Evaluation Evaluation Baseline heart rate: 130 Variability: Moderate (6-25) monitor accelerations: Present Monitor Decelerations: Absent Contraction Frequency (minutes): 3 Status: Category l Dilation (cm): 4 Effacement (%): 80 station: -2 [facility] Medical History PCOS (polycystic ovarian syndrome) Heterozygous for MTHFR gene mutation GERD with esophagitis Female infertility Plantar wart of right foot Surgical History History of third molar tooth extraction (2009) Family History Brother No problems noted. Father Asthma GERD (gastroesophageal reflux disease) Melanoma Mother No problems noted. Sister No problems noted. 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 current occupational exposures/hazards: No special marsha needs: No travel history: over 6 months ago seatbelt use: always helmet use: Yes water heater temp set < 120 deg: Yes working smoke detector in home: Yes fire extinguisher in home: Yes carbon monox detector in home: Yes firearms in home: Yes firearms unloaded and locked: Yes do you feel safe at home: Yes Smoking Status: Never smoker second hand exposure: No alcohol intake: never substance use type: does not use during the past year weight has: remained stable well-balanced diet: daily or most days daily servings fruits/ve or more times/day caffeine: Yes (occasional black tea) Type(s) of exercise: walking frequency: 3-4 times per week Meds Home Medications and Allergies Home Medications ?Medication ?Instructions ?Recorded ?Confirmed ?Type albuterol sulfate 90 mcg/actuation 2 puff inhalation Q4-6H PRN 07/14/18 07/25/25 History aerosol inhaler (ProAir HFA) shortness of breath or wheezing albuterol sulfate 2.5 mg/3 mL 2.5 mg inhalation Q4-6H PRN 05/17/20 07/25/25 History (0.083 %) solution for nebulization shortness of breath or wheezing fluticasone propionate 44 2 inh inhalation BID #10.6 grams 07/13/24 07/25/25 Rx mcg/actuation HFA aerosol inhaler vitamin-ferrous sulfate 1 tab PO DAILY 11/28/24 07/25/25 History 27 mg iron-folic acid 0.8 mg tablet ondansetron 4 mg disintegrating 4 mg PO Q8H PRN nausea and 03/12/25 07/25/25 Rx tablet vomiting #30 tabs Allergies Allergy/AdvReac Type Severity Reaction Status Date / Time No Known Drug Allergies Allergy Verified 07/09/25 15:14 OB Exam Resp Effort & Inspection: normal respiratory effort Auscultation: clear to auscultation bilaterally Cardio Rate: regular rate Rhythm: regular rhythm Heart Sounds: S1 normal, S2 normal and no murmurs GI Inspection: non-distended Palpation: Yes soft and No tender Presentation: vertex Objective Labs 07/25/25 12:10 Labs: Laboratory Results - last 24 hr 07/25/25 12:10 WBC 11.9 H RBC 4.32 Hgb 13.7 Hct 40.4 MCV 93.4 MCH 31.7 MCHC 33.9 RDW 13.1 Plt Count 257 Neut % (Auto) 85.6 H Lymph % (Auto) 10.7 L Walton % (Auto) 3.1 Eos % (Auto) 0.1 L Baso % (Auto) 0.5 Neut # (Auto) 59209 H Lymph # (Auto) 1300 Walton # (Auto) 400 Eos # (Auto) 0 Baso # (Auto) 100 Blood Type A Positive Antibody Screen Negative Assessment and Plan Assessment and Plan Assessment and Plan narrative: Pt is a 30yo at 39w5d who presented in active labor. GBS negative, Rh positive. Noted to have shortened femurs on u/s, 7th percentile. Pt also with well controlled asthma. - Expectant management, anticipate - FHT reassuring - GBS negative, no prophylaxis indicated - Epidural for pain control when desired - No Hemabate after delivery due to asthma Time-Based Coding :: [TOTAL MINUTES] spent with patient and on the chart (including review of chart, obtaining history, exam, reviewing outside data, placing orders, documenting exam and treatment plan, and counseling patient) on [DATE].
[2025-07-25] MEDS: LACTATED RINGERS 1,000 ML 100 ML IV ×2 (14:55→16:54)
[2025-07-25] MEDS: FENT 2MCG/ML BUPIV 0.125% EPI 200 MCG/100 ML PLAST..BAG 8 MCG EPIDURAL (16:55)
--- NOTE | 2025-07-25 16:55 | P.PCN_ITS ---
[facility] Pre-procedure Procedure: Continuous Lumbar Epidural for L&D Attending OB provider: Elly Coffey PMH/ROS narrative: term labor. PMH: PCOS (polycystic ovarian syndrome), Heterozygous for MTHFR gene mutation, GERD with esophagitis, Asthma. No obstetric complications. ASA Class: II Labs: Hct 40.4 % (36-46) 07/25/25 12:10 Plt Count 257 X10^3/uL (150-400) 07/25/25 12:10 Medications: Current Medications Generic Name Dose Route Start Last Admin Trade Name Freq PRN Reason Stop Dose Admin Albuterol 2.5 mg 07/25/25 13:47 Albuterol 2.5 Mg/3 Ml Neb (Adult) INH Q4H PRN Shortness Of Breath Or Wheezing Budesonide 0.5 mg 07/25/25 20:00 Budesonide 0.5 Mg/2 Ml Neb INH RTBID LINH Calcium Carbonate 1,000 mg 07/25/25 12:02 Calcium Carbonate 500 Mg Tab PO Q2HR PRN Dyspepsia Carboprost Tromethamine 250 mcg 07/25/25 12:02 Carboprost 250 Mcg/Ml Ampul IM Q90M PRN Bleeding Diphenhydramine HCl 25 mg 07/25/25 16:49 Diphenhydramine 50 Mg/Ml Vial IV Q10M PRN Pruritis Fentanyl 50 mcg 07/25/25 12:02 Fentanyl 100 Mcg/2 Ml Inj IV Q1H PRN Pain, Moderate (4-6) Oxytocin/Lactated Ringer's 30 unit in 500 mls @ 200 mls/hr 07/25/25 12:02 Oxytocin Premix IV CONT PRN Bleeding Protocol Tranexamic Acid 1,000 mg/ 100 mls @ 600 mls/hr 07/25/25 12:02 Sodium Chloride IV NOW PRN Bleeding Lactated Ringer's 1,000 mls @ 100 mls/hr 07/25/25 12:15 07/25/25 16:54 Lactated Ringers IV 07/25/25 22:14 100 mls/hr CONT LINH Administration FENT 2MCG/ML BUPIV 0.125% EPI 200 mcg in 100 mls @ 8 mls/hr 07/25/25 17:00 07/25/25 16:55 Fentanyl/Bupiv/Ns 2mcg/Ml - 0.125% EPIDURAL 8 mls/hr CONT LINH Administration Lidocaine HCl 20 ml 07/25/25 12:02 Lidocaine 1% 20 Ml INJ INTRA-OP PRN Post Delivery Methylergonovine Maleate 0.2 mg 07/25/25 12:02 Methylergonovine 0.2 Mg Tablet PO Q6HR PRN Heavy Bleeding Methylergonovine Maleate 0.2 mg 07/25/25 12:02 Methylergonovine 0.2 Mg/Ml Vial IM NOW PRN Bleeding Mineral Oil 30 ml 07/25/25 12:02 Mineral Oil 30 Ml Udc TOP PRN PRN Version Misoprostol 800 mcg 07/25/25 12:02 Misoprostol 200 Mcg Tablet AK NOW PRN Bleeding Misoprostol 400 mcg 07/25/25 12:02 Misoprostol 200 Mcg Tablet SL NOW PRN Bleeding Nalbuphine HCl 2.5 mg 07/25/25 16:49 Nalbuphine 20 Mg/Ml Ampul IV Q10M PRN Pruritis Naloxone HCl 0.2 mg 07/25/25 12:02 Naloxone 0.4 Mg/Ml Vial IV Q2MIN PRN Opiate Reversal Ondansetron HCl 4 mg 07/25/25 12:02 Ondansetron 4 Mg/2 Ml Inj IV Q4HR PRN Nausea And Vomiting Oxytocin 10 unit 07/25/25 12:02 Oxytocin 10 Unit/Ml Vial IM NOW PRN Bleeding Allergies: Allergies Allergy/AdvReac Type Severity Reaction Status Date / Time No Known Drug Allergies Allergy Verified 07/09/25 15:14 Procedure Insertion date: 07/25/25 Insertion time: 16:16 Prep/Local: betadine x3 and 1% lidocaine Interspace: L34 Patient position: sitting Needle: 18 gauge Wukong.comtead (CSE: 27g Pencan through Hustead, clear CSF, 1mL 0.25% Bupiv MPF) Loss of resistance with: saline COOPER at (cm): 4 Catheter placed at SKIN (cm): 10 Catheter in SPACE (cm): 6 Insertion: No CSF, No Blood, No Paresthesia with insertion, No Paresthesia with injection and No Test dose reaction Initial Medications TEST DOSE time: 16:17 TEST DOSE: 1.5% lidocaine with epinephrine 1:200k (mL): 3 BOLUS DOSE time: 16:27 BOLUS DOSE (mL): 4 BOLUS DOSE med: other (infusate) Infusion INFUSION: 0.125% bupivacaine and with fentanyl 2 mcg/mL Initial rate (mL/hr): 8 Subsequent interventions: PCEA@8+4 Post-procedure Anesthesia date START: 07/25/25 Anesthesia time START: 16:08 Anesthesia date END: 07/26/25 Anesthesia time END: 04:11 Post-procedure Anesthesia Assessment: Yes CV function: HR/BP stable, Yes Resp function: RR/sat/airway adequate, Yes Post-op hydration adequate, Yes Pain control adequate, Yes Nausea & vomiting absent, Yes Temperature > 36 C, Yes Men maty status appropriate and No Anesthesia complications
[2025-07-25] MEDS: ONDANSETRON 4 MG/2 ML INJ IV ×2 (17:14→21:54)
--- NOTE | 2025-07-25 22:28 | PM.OBPNLAB ---
Date/Time Date Patient Seen: 07/25/25 Time Patient Seen: 22:10 Pain Control Pain control: epidural Pelvic Exam Dilation (cm): 7 Effacement (%): 100 station: -1 Contractions Monitor mode: External Contraction frequency (min): 3 Contraction pattern: Regular Status status: Category l Heart Rate Baseline: 135 Monitor Accelerations: Present Monitor Decelerations: Absent Monitor Variability: Moderate Assessment and Plan Comments: Pt is a 30yo at 39w5d who presented in active labor. GBS negative, Rh positive. Noted to have shortened femurs on u/s, 7th percentile. Pt also with well controlled asthma. AROM performed after informed consent with clear fluid present. - Expectant management, anticipate - FHT reassuring - Epidural in place and working well - No Hemabate after delivery due to asthma
[2025-07-26] MEDS: FENT 2MCG/ML BUPIV 0.125% EPI 200 MCG/100 ML PLAST..BAG 8 MCG EPIDURAL (00:22)
[2025-07-26] MEDS: ONDANSETRON 4 MG/2 ML INJ IV (02:30)
--- NOTE | 2025-07-26 04:53 | P.PCNOB_ITS ---
Labor & Delivery Delivery date: 07/26/25 Delivery Time: 04:01 Intrapartal Events: Prolonged 2nd Stage > 2.5 hours Cervical ripening method: none Induction method: none Delivery augmentation: rupture of membranes Delivery monitor: external FHT and external uterine Route of delivery: Episiotomy description: None L&D Laceration Description: Perineal - 2nd Degree and Labial Quantitative Blood Loss: 450 Anesthesia Type: Epidural Narrative: PROCEDURE: at 39w5d presented in active labor and was admitted to Labor and Delivery. The patient progressed through the 1st stage over 15 hours. AROM occured at 22:14 with clear fluid. Pain was controlled with an epidural. The patient progressed through the 2nd stage over 3 hours and delivered a viable male infant with APGARs 9/9 at 4:01 via . The cord was cut and clamped after it stopped pulsating. The placenta delivered with gentle cord traction, and appeared complete. The perineum and vagina were inspected with 2nd degree perineal and left labial into left side wall lacerations repaired with 2-O Vicryl. Needle and sponge counts were correct.? The vagina was inspected and no items were left in situ. Caridad was doing well with Rowdy, her and her , Aniceto, at [facility]. PREPROCEDURE DIAGNOSIS: Intrauterine at 39w5d GBS negative RH positive POSTPROCEDURE DIAGNOSIS: Intrauterine at 39w5d, delivered Same as preprocedure Baby 1: Infant gender: Male Presentation: vertex Position: Right Occiput Anterior Placenta delivery description: Spontaneous Cord Vessel Description: 3 Vessels score (1 min): 9 score (5 min): 9 weight: 6 lb 8.834 oz Plan for aftercare: Routine care
[2025-07-26] MEDS: DERMOPLAST SPRAY 20% 60 ML 1 SPRAY TOP (06:52)
[2025-07-26] MEDS: LANOLIN OINT 7 GM 1 APPLIC TOP (06:53)
[2025-07-26] MEDS: LACTATED RINGERS 1,000 ML 999 ML IV (09:00)
[2025-07-26] MEDS: PRENATAL VIT,CALC/IRON/FOLIC 1 TABLET 1 TAB PO (10:42)
[2025-07-26] MEDS: ACETAMINOPHEN 325 MG TABLET 650 MG PO ×3 (10:43→23:45)
[2025-07-26] MEDS: IBUPROFEN 600 MG TABLET PO ×2 (14:31→20:27)
[2025-07-26 21:38] LABS: Add Manual Diff / Slide Review NO; Hematocrit 31.7 % (36-46); Hemoglobin 10.9 g/dL (12.0-16.0); Lymphocytes Absolute Auto 2500 /uL (1100-4500); Mean Corpuscular HGB Conc 34.4 % (30-36); Mean Corpuscular Hemoglobin 32.0 PG (26-34); Mean Corpuscular Volume 93.2 fL (80-100); Platelet Count 195 X10^3/uL (150-400)
[2025-07-27] MEDS: IBUPROFEN 600 MG TABLET PO ×2 (03:03→09:11)
[2025-07-27] MEDS: ACETAMINOPHEN 325 MG TABLET 650 MG PO ×2 (05:39→14:11)
[2025-07-27] MEDS: PRENATAL VIT,CALC/IRON/FOLIC 1 TABLET 1 TAB PO (09:12)
--- NOTE | 2025-07-27 11:09 | P.DS_ITS ---
Discharge Providers Provider Date of admission: 07/25/25 11:22 Discharge Date: 07/27/25 Primary care physician: Izaiah Sethi MD Consults: 07/26/25 06:21 Consult to [employer] Analyst Routine Comment: Discharge provider: Elly Coffey MD Summary Hospital Course Date Patient Seen: 07/27/25 Diagnoses: Intrauterine at 39w5d GBS negative RH positive Hospital Course: The pt presented in active labor. She had an epidural for pain control. She progressed to complete, and had an uncomplicated of a viable baby boy. A 2nd degree perineal and left labial laceration were then repaired. , there were no complications. At the time of discharge she was voiding, ambulating, and passing flatus without difficulty. Her lochia was decreasing appropriately. Her pain was well controlled. She was with a nipple shield. She will f/u in 6 weeks for check. Peripartum Data Delivery Method: Natural Vaginal Laceration Description: Perineal - 2nd Degree and Labial Episiotomy description: None Procedures: Spontaneous vaginal delivery complications: none [place] 1: Gender: Male Disposition of : home Status at Discharge Cognitive/behavioral status at discharge: oriented Functional status at discharge: independent ambulation Overall status at discharge: patient is progressing back to baseline Time Spent with Patient Time attestation: Total time spent providing and/or coordinating discharge services: Objective Labs 07/26/25 21:18 Labs: Laboratory Results - last 24 hr 07/26/25 21:18 WBC 12.5 H RBC 3.40 L Hgb 10.9 L Hct 31.7 L MCV 93.2 MCH 32.0 MCHC 34.4 RDW 13.3 Plt Count 195 Neut % (Auto) 73.8 Lymph % (Auto) 20.0 L [place] % (Auto) 4.7 Eos % (Auto) 0.8 L Baso % (Auto) 0.7 Neut # (Auto) 9200 H Lymph # (Auto) 2500 [place] # (Auto) 600 Eos # (Auto) 100 Baso # (Auto) 100 Exam Narrative Exam Narrative: Gen: NAD, sitting comfortably in bed, appears well CV: RRR, no murmurs Resp: clear to auscultation bilaterally Abd: soft, appropriately tender, fundus firm and below the umbilicus, nondistended Ext: no edema Discharge Plan Discharge Plan Patient Disposition: Home Discharge orders & Medications Prescriptions: New acetaminophen 325 mg Tablet 650 mg PO Q6H PRN (Reason: Pain, Mild (1-3)) Qty: 60 0RF ibuprofen 600 mg Tablet 600 mg PO Q6H Qty: 60 0RF Continued fluticasone propionate 44 mcg/actuation HFA aerosol inhaler 2 inh INHALATION BID Qty: 10.6 2RF albuterol sulfate [ProAir HFA] 90 mcg/actuation HFA aerosol inhaler 2 puff INHALATION Q4-6H PRN (Reason: shortness of breath or wheezing) albuterol sulfate 2.5 mg /3 mL (0.083 %) solution for nebulization 2.5 mg INHALATION Q4-6H PRN (Reason: shortness of breath or wheezing) vit-ferrous sulfat-FA 27 mg iron- 0.8 mg tablet 1 tab PO DAILY Discontinued ondansetron 4 mg tablet,disintegrating 4 mg PO Q8H PRN (Reason: nausea and vomiting) Qty: 30 0RF Follow up/Referrals: Izaiah Sethi MD [Primary Care Provider, Family Practice] Elly Coffey MD [Physician, Family Practice] - 09/05/25 11:30 am Referral Note: Please Check in at 11:15am on September 05 for your six week appointment. Diet/Activity/Treatments Diet: Diet as Tolerated and Regular Skin/Wound/Dressing Care Report to your healthcare provider any signs of infection, such as:: chills, fever, increased pain and unusual drainage Visit Report/Discharge Packet Instructions: DI for Labor and Delivery, Vaginal Stand Alone Forms: Patient Portal/API, Stroke Signs & Symptoms Discharge Data Primary Care Provider: Izaiah Sethi Discharges patient from system. Discharge Date/Time: 07/27/25 15:35
[2025-07-27 14:26] VITALS: BP 120/67
== END 2025-07-27 15:35 | disposition home or self-care (01) | DRG 807 ==
PROVIDERS: Admitting Provider Family Medicine; PCP Family Medicine; Referring Provider Family Medicine; Visit Provider Family Medicine
DX: O99.52 Diseases of the respiratory system complicating childbirth (principal); Z37.0 Single live birth; J45.909 Unspecified asthma, uncomplicated; O63.1 Prolonged second stage (of labor); Z3A.39 39 weeks gestation of pregnancy; O70.1 Second degree perineal laceration during delivery; O70.0 First degree perineal laceration during delivery
CPT/HCPCS: 36415; 59025; 59050; 82962; 85025; 86850; 86900; 86901; G0378; G0379; J2405